=== PATIENT | male | born 1985 | race Caucasian/White ===

== ENCOUNTER 2016-07-21 14:40 | Emergency (ER) | payer SELFPAY ==
[2016-07-21] MEDS ORDERED: Sulfameth/Trimethoprim DS 800-160mg TAB ONE (15:15)
[2016-07-21] MEDS ORDERED: Clindamycin 150 MG CAP ONE (15:15)
== END 2016-07-21 15:26 | disposition home or self-care (01) ==
LOC: MADERS 14:40
DX: S50.861A Insect bite (nonvenomous) of right forearm, initial encounter (principal); L03.113 Cellulitis of right upper limb; F17.210 Nicotine dependence, cigarettes, uncomplicated
CPT/HCPCS: 99282

== ENCOUNTER 2024-06-10 12:16 | Emergency (ER) | payer SELFPAY ==
[2024-06-10 17:22] LABS: HIV (1/2) Antibody/Antigen NONREACTIVE (NonReactive); HIV 1/2 INDEX 0.16 S/CO (<1.00)
[2024-06-11 01:39] LABS: Chlam.trachomatis by PCR,Urine Not Detected (NotDetected); GC N.gonorrhoeae PCR,UrineVOID DETECTED (NotDetected)
[2024-06-11 11:05] LABS: Syphilis Antibody Nonreactive (Nonreactive); Syphilis Antibody Index 0.07 S/CO (<1.00 Non-Reactive)
== END 2024-06-10 12:51 | disposition home or self-care (01) ==
LOC: MADERS 12:16
DX: Z20.2 Contact with and (suspected) exposure to infections with a predominantly sexual mode of transmission (principal); F17.210 Nicotine dependence, cigarettes, uncomplicated
CPT/HCPCS: 36415; 86780; 87389; 87491; 87591; 99283

== ENCOUNTER 2024-06-12 14:39 | Emergency (ER) | payer SELFPAY ==
[2024-06-12] MEDS ORDERED: Sterile Water 10 ML ONE (15:13)
[2024-06-12] MEDS ORDERED: Azithromycin 250 MG TAB ONE (15:13)
[2024-06-12] MEDS ORDERED: cefTRIAXone (ROCEPHIN) 500 MG VIAL ONE (15:13)
== END 2024-06-12 15:51 | disposition home or self-care (01) ==
LOC: MADERS 14:39
DX: N34.2 Other urethritis (principal); F17.210 Nicotine dependence, cigarettes, uncomplicated
CPT/HCPCS: 96372; 99283; J0696